=== PATIENT | female | born 1975 | race Caucasian/White ===

== ENCOUNTER 2024-11-15 10:22 | Emergency (ER) | payer SELFPAY ==
[2024-11-15 10:55] LABS: #Basophils 0.1 thou/uL (0.0-0.2); #Lymphocytes 0.7 thou/uL (1.20-3.40); #Monocytes 0.5 thou/uL (0.11-0.59); #Neutrophils 4.8 thou/uL (1.40-6.50); %Basophils 0.9 % (0.0-1.0); %Eosinophils 0.1 % (0.0-10.0); %Monocytes 8.3 % (0.0-10.0); %Neutrophils 78.8 % (42.0-75.0); Hematocrit 39.8 % (36.0-47.0); Hemoglobin 13.1 g/dL (12.0-16.0); Mean Corpuscular HGB CONC 32.9 g/dL (32.0-36.0); Mean Corpuscular Hemoglobin 29.4 pg (27.0-31.0); Mean Corpuscular Volume 89.6 fl (78.0-98.0); Platelet Count 307 10x3/uL (130-400); RBC Distribution Width 11.6 % (11.5-14.5); Red Blood Cell (RBC) Count 4.45 mill/uL (4.20-5.40); White Blood Cell (WBC) Count 6.1 10x3/uL (4.8-10.8)
[2024-11-15 11:13] LABS: ALT (SGPT) 23 U/L (8-55); AST (SGOT) 22 U/L (5-34); Albumin 4.5 g/dL (3.5-5.0); Alkaline Phosphatase 65 U/L (40-110); Anion Gap 12 mmol/L (10-20); BUN (Urea Nitrogen) 7 mg/dL (7.0-18.7); Bilirubin, Total 0.4 mg/dL (0.2-1.2); Calc. Creatinine Clearance 0 mL/min (70-130); Calcium 9.4 mg/dL (7.8-10.44); Carbon Dioxide 24 mmol/L (22-29); Chloride 105 mmol/L (98-107); Estimated GFR 98; Glucose 103 mg/dL (70-105); Potassium 4.2 mmol/L (3.5-5.1); Protein, Total 7.5 g/dL (6.0-8.3); Sodium 137 mmol/L (136-145)
[2024-11-15 11:14] LABS: Troponin I Less than 0.010 ng/mL (< 0.028)
[2024-11-15 11:15] LABS: Bilirubin Negative (Negative); Blood, Urine Negative (Negative); Clarity Clear (Clear); Glucose, Urine (Dipstick) Negative (Negative); Ketone, Urine Negative (Negative); Leukocyte Negative (Negative); Nitrite Negative (Negative); Protein, Urine (Dipstick) Negative (Neg-Trace); Urobilinogen 0.2 mg/dL (Less than 2)
[2024-11-15] MEDS ORDERED: Aspirin Chewable 81 MG TAB ONE (11:24)
[2024-11-15 11:25] LABS: CAUTI Indications for Culture Dysuria,urgency,freq; RBC/HPF None Seen HPF (0-3); Renal Epithelial 0-3 HPF (None Seen); Transitional Epithelial 0-3 HPF (None Seen); WBC/HPF 0-3 HPF (0-3)
[2024-11-15 11:30] LABS: Bacteria/HPF 1+ HPF (None Seen)
[2024-11-15 11:31] LABS: Urine Culture Reflex No No
== END 2024-11-15 11:40 | disposition home or self-care (01) ==
LOC: BURERS 10:22
DX: F41.9 Anxiety disorder, unspecified (principal); I10 Essential (primary) hypertension; R07.89 Other chest pain; Z87.891 Personal history of nicotine dependence
CPT/HCPCS: 71046; 80053; 81001; 84484; 85025; 93005